=== PATIENT | male | born 1960 | race African-American/Black ===

== ENCOUNTER 2019-11-21 17:22 | Emergency (ER) | payer MEDICARE, OTHER ==
[~2019-11-21] VITALS: Ht 180.3 cm; Wt 104.0 kg
[2019-11-21 17:42] VITALS: BP 112/76
== END 2019-11-21 18:18 | disposition home or self-care (01) ==
LOC: ER 17:22
DX: R05 Cough (principal); Z20.828 Contact with and (suspected) exposure to other viral communicable diseases; Z88.0 Allergy status to penicillin
CPT/HCPCS: 71045; 87635; 99284

== ENCOUNTER 2020-08-16 16:16 | Emergency (ER) | payer MEDICARE ==
[~2020-08-16] VITALS: Ht 175.3 cm; Wt 100.0 kg
[2020-08-16 16:18] VITALS: BP 136/88
[2020-08-16] MEDS ORDERED: IBUPROFEN 600MG TABLET PO ONE (17:00)
[2020-08-16] MEDS ORDERED: IBUP-2029 MT (17:36)
== END 2020-08-16 17:51 | disposition home or self-care (01) ==
LOC: ER 16:16
DX: S39.012A Strain of muscle, fascia and tendon of lower back, initial encounter (principal); V49.49XA Driver injured in collision with other motor vehicles in traffic accident, initial encounter; Y93.89 Activity, other specified; Y92.89 Other specified places as the place of occurrence of the external cause; Y99.8 Other external cause status
CPT/HCPCS: 71045; 72070; 72110; 99284

== ENCOUNTER 2020-12-11 09:09 | Emergency (ER) | payer MEDICARE, MEDICAID ==
[~2020-12-11] VITALS: Ht 172.7 cm; Wt 105.0 kg
[~2020-12-11 09:09] MED LIST: IBUP-2029 MT
[2020-12-11] MEDS ORDERED: MORPHINE SULFATE 4 MG/ML CPJ (NOT FOR IM USE) IV STA (09:28)
[2020-12-11] MEDS ORDERED: ONDANSETRON HCL 4MG/2ML INJ IV STA (09:28)
[2020-12-11 10:10] LABS: BASOPHILS % 0.4 % (0.0-2.0); HEMATOCRIT. 41.3 % (42.0-52.0); HEMOGLOBIN. 13.8 g/dL (14.0-18.0); LYMPHOCYTES % 15.9 % (20.0-50.0); MEAN CORPUSCULAR HEMOGLOBIN 31.2 pg (28.0-32.0); MEAN CORPUSCULAR VOLUME 93.5 fL (80.0-94.0); MEAN PLATELET VOLUME 9.4 fl (7.4-10.4); NEUTROPHILS % 76.7 % (40.0-76.0); PLATELET 220 x1000/uL (130-400); RED BLOOD CELL COUNT 4.42 mill/uL (4.7-6.1); RED CELL DISTRIBUTION WIDTH 13.7 % (11.6-14.6)
[2020-12-11 10:21] LABS: CHLORIDE 109 mEq/L (98-107)
[2020-12-11 10:28] LABS: INR 0.9
[2020-12-11 11:15] LABS: CLARITY URINE CLEAR (CLEAR); COLOR URINE YELLOW (YELLOW); KETONES URINE 1+ (NEGATIVE); LEUKOCYTE ESTERASE URINE NEGATIVE (NEGATIVE); NITRITE URINE NEGATIVE (NEGATIVE); OCCULT BLOOD URINE NEGATIVE (NEGATIVE); PH URINE 5.5 (4.5-8.0); PROTEIN URINE NEGATIVE (NEGATIVE); SPECIFIC GRAVITY URINE 1.021 (1.005-1.030); UROBILINOGEN URINE 0.2 E.U./dL (0.2-1.0)
[2020-12-11] MEDS ORDERED: METR500T PO (11:29)
[2020-12-11] MEDS ORDERED: CIPR-263 PO (11:29)
[2020-12-11 12:29] VITALS: BP 127/89
== END 2020-12-11 12:42 | disposition home or self-care (01) ==
LOC: ER 09:09
DX: K52.9 Noninfective gastroenteritis and colitis, unspecified (principal); I10 Essential (primary) hypertension; Z88.8 Allergy status to other drugs, medicaments and biological substances; Z79.899 Other long term (current) drug therapy
CPT/HCPCS: 36415; 74176; 80053; 81003; 83690; 85025; 85610; 96374; 96375; 99284; J2270; J2405

== ENCOUNTER 2021-01-02 12:51 | Emergency (ER) | payer MEDICARE, MEDICAID ==
[~2021-01-02] VITALS: Ht 177.8 cm; Wt 113.0 kg
[~2021-01-02 12:51] MED LIST changes: +CIPR-263 PO; +METR500T PO
[2021-01-02 13:48] LABS: BASOPHILS % 1.3 % (0.0-2.0); EOSINOPHILS % 4.1 % (0.0-5.0); HEMATOCRIT. 40.5 % (42.0-52.0); HEMOGLOBIN. 13.7 g/dL (14.0-18.0); LYMPHOCYTES % 39.7 % (20.0-50.0); MEAN CORPUSCULAR VOLUME 94.3 fL (80.0-94.0); MEAN PLATELET VOLUME 8.7 fl (7.4-10.4); NEUTROPHILS % 45.9 % (40.0-76.0); PLATELET 230 x1000/uL (130-400); RED BLOOD CELL COUNT 4.29 mill/uL (4.7-6.1)
[2021-01-02 13:54] LABS: CHLORIDE 109 mEq/L (98-107)
[2021-01-02 13:59] LABS: CLARITY URINE CLEAR (CLEAR); COLOR URINE YELLOW (YELLOW); KETONES URINE NEGATIVE (NEGATIVE); LEUKOCYTE ESTERASE URINE NEGATIVE (NEGATIVE); NITRITE URINE NEGATIVE (NEGATIVE); OCCULT BLOOD URINE NEGATIVE (NEGATIVE); PROTEIN URINE NEGATIVE (NEGATIVE); SPECIFIC GRAVITY URINE 1.011 (1.005-1.030); UROBILINOGEN URINE 0.2 E.U./dL (0.2-1.0)
[2021-01-02] MEDS ORDERED: NA P133E8 RC (19:44)
[2021-01-02] MEDS ORDERED: POLY119P2 MT (19:47)
[2021-01-02 20:15] VITALS: BP 129/81
== END 2021-01-02 20:25 | disposition home or self-care (01) ==
LOC: ER 12:51
DX: R10.31 Right lower quadrant pain (principal); Z88.2 Allergy status to sulfonamides
CPT/HCPCS: 36415; 74177; 80053; 81003; 85025; 99285

== ENCOUNTER 2021-01-14 08:35 | Emergency (ER) | payer MEDICARE, MEDICAID ==
[~2021-01-14] VITALS: Ht 177.8 cm; Wt 109.0 kg
[~2021-01-14 08:35] MED LIST changes: +NA P133E8 RC; +POLY119P2 MT
[2021-01-14 09:45] LABS: BASOPHILS % 1.3 % (0.0-2.0); EOSINOPHILS % 3.2 % (0.0-5.0); HEMATOCRIT. 42.4 % (42.0-52.0); HEMOGLOBIN. 13.7 g/dL (14.0-18.0); LYMPHOCYTES % 34.6 % (20.0-50.0); MEAN CORPUSCULAR HEMOGLOBIN 31.1 pg (28.0-32.0); MEAN CORPUSCULAR VOLUME 96.6 fL (80.0-94.0); MEAN PLATELET VOLUME 8.7 fl (7.4-10.4); NEUTROPHILS % 52.9 % (40.0-76.0); PLATELET 201 x1000/uL (130-400); RED BLOOD CELL COUNT 4.39 mill/uL (4.7-6.1)
[2021-01-14 09:55] LABS: CHLORIDE 108 mEq/L (98-107)
[2021-01-14] MEDS ORDERED: DYZ MT (10:40)
[2021-01-14 11:07] VITALS: BP 145/96
== END 2021-01-14 11:10 | disposition home or self-care (01) ==
LOC: ER 08:35
DX: R60.0 Localized edema (principal); I10 Essential (primary) hypertension; Z88.2 Allergy status to sulfonamides; Z98.890 Other specified postprocedural states; Z79.899 Other long term (current) drug therapy
CPT/HCPCS: 36415; 71045; 80053; 83880; 84484; 85025; 93005; 99285

== ENCOUNTER 2022-06-17 03:07 | Emergency (ER) | payer OTHER, MEDICAID ==
[~2022-06-17] VITALS: Ht 185.4 cm; Wt 122.0 kg
[~2022-06-17 03:07] MED LIST changes: +ATOR-2 PO; +CLOP75TA33 PO; +DYZ MT; +TRIA1TAB92 PO
[2022-06-17 03:10] VITALS: BP 144/88
[2022-06-17] MEDS ORDERED: ACETAMINOPHEN 325MG TABLET PO ONE (06:15)
[2022-06-17] MEDS ORDERED: TOPUD PO (07:17)
== END 2022-06-17 08:57 | disposition home or self-care (01) ==
LOC: ER 03:24
DX: M25.512 Pain in left shoulder (principal); M54.2 Cervicalgia; M79.604 Pain in right leg; G89.11 Acute pain due to trauma; R10.9 Unspecified abdominal pain; V49.49XD Driver injured in collision with other motor vehicles in traffic accident, subsequent encounter; Y93.89 Activity, other specified; Y92.488 Other paved roadways as the place of occurrence of the external cause
CPT/HCPCS: 71045; 71100; 73030; 73130; 99284

== ENCOUNTER 2022-06-19 20:52 | Emergency (ER) | payer OTHER, MEDICAID ==
[~2022-06-19] VITALS: Ht 180.3 cm; Wt 127.8 kg
[~2022-06-19 20:52] MED LIST changes: +TOPUD PO
[2022-06-19] MEDS ORDERED: IBUPROFEN 400MG TABLET PO ONE ×2 (21:45→23:30)
[2022-06-19] MEDS ORDERED: IBUP-2028 MT (23:42)
[2022-06-19 23:45] VITALS: BP 133/79
== END 2022-06-19 23:45 | disposition home or self-care (01) ==
LOC: ER 20:52
DX: R51.9 Headache, unspecified (principal); I10 Essential (primary) hypertension
CPT/HCPCS: 99282

== ENCOUNTER 2024-01-03 04:51 | Emergency (ER) | payer MEDICARE, MEDICAID ==
[~2024-01-03] VITALS: Ht 177.8 cm; Wt 101.0 kg
[~2024-01-03 04:51] MED LIST changes: +ASPI-1497 PO; -CIPR-263 PO; -CLOP75TA33 PO; -DYZ MT; -IBUP-2029 MT; -METR500T PO; -NA P133E8 RC; +NITR0.4T49 SL; -POLY119P2 MT; -TOPUD PO; -TRIA1TAB92 PO
[2024-01-03 04:55] VITALS: O2SAT 98
[2024-01-03 06:03] LABS: EOSINOPHILS % 3.5 % (0.0-5.0); HEMOGLOBIN. 12.9 g/dL (14.0-18.0); LYMPHOCYTES % 42.2 % (20.0-50.0); MEAN CORPUSCULAR VOLUME 96.8 fL (80.0-94.0); MEAN PLATELET VOLUME 9.2 fl (7.4-10.4); MONOCYTES % 8.9 % (2.0-8.0); NEUTROPHILS % 44.4 % (40.0-76.0); PLATELET 187 x1000/uL (130-400); RED BLOOD CELL COUNT 4.02 mill/uL (4.7-6.1); WHITE BLOOD COUNT 4.4 x1000/uL (4.5-11.0)
[2024-01-03 06:04] LABS: CHLORIDE 112 mEq/L (98-107); POTASSIUM 4.3 mEq/L (3.5-5.1); SODIUM 145 mEq/L (136-145)
[2024-01-03 06:05] LABS: CARBON DIOXIDE 28 mEq/L (21-32)
[2024-01-03 06:10] LABS: CREATININE 1.2 mg/dL (0.6-1.3); GLUCOSE 82 mg/dL (70-105); UREA NITROGEN BLOOD 19 mg/dL (9-23)
[2024-01-03 06:11] LABS: TROPONIN I HIGH SENSITIVITY 4 ng/L (3.0-53)
[2024-01-03 06:50] VITALS: BP 130/82; PULSE 63; RESP 20; TEMP 36.94740; O2SAT 100
== END 2024-01-03 06:50 | disposition home or self-care (01) ==
LOC: ER 04:51
DX: H57.13 Ocular pain, bilateral (principal); I10 Essential (primary) hypertension; Z77.098 Contact with and (suspected) exposure to other hazardous, chiefly nonmedicinal, chemicals; E78.00 Pure hypercholesterolemia, unspecified; Z88.8 Allergy status to other drugs, medicaments and biological substances; Z79.899 Other long term (current) drug therapy; Z86.718 Personal history of other venous thrombosis and embolism
CPT/HCPCS: 36415; 71045; 80048; 83880; 84484; 85025; 99284